=== PATIENT | female | born 1995 | race Caucasian/White ===

== ENCOUNTER 2021-02-01 01:15 | Emergency (ER) | payer OTHER ==
[~2021-02-01] VITALS: Ht 165.1 cm; Wt 70.0 kg
[2021-02-01 01:27] LABS: BASO % 1 % (0-3); EOS # 0.2 x10^3/uL (0.0-0.7); EOS % 3 % (0-3); HEMOGLOBIN 11.6 g/dL (12.0-15.5); LYMPH # 2.8 x10^3/uL (1.0-4.8); LYMPH % 42 % (24-48); MEAN CORPUSCULAR HEMOGLOBIN 26 pg (25-35); MEAN CORPUSCULAR HGB CONC 32 g/dL (31-37); MEAN CORPUSCULAR VOLUME 79 fL (79-100); MONO # 0.7 x10^3/uL (0.0-1.1); MONO % 10 % (0-9); NEUT % 45 % (31-73); PLATELET COUNT 364 x10^3/uL (140-400); RED BLOOD COUNT 4.54 x10^6/uL (3.50-5.40); RED CELL DISTRIBUTION WIDTH 18.6 % (11.5-14.5); WHITE BLOOD COUNT 6.7 x10^3/uL (4.0-11.0)
[2021-02-01 01:40] LABS: CALCIUM 8.3 mg/dL (8.5-10.1); CREATININE 0.9 mg/dL (0.6-1.0); GFR 75.7; POTASSIUM 3.4 mmol/L (3.5-5.1)
[2021-02-01 01:46] LABS: ALBUMIN 3.4 g/dL (3.4-5.0); MAGNESIUM 1.8 mg/dL (1.8-2.4); PHOSPHORUS 3.6 mg/dL (2.6-4.7); TOTAL BILIRUBIN 0.3 mg/dL (0.2-1.0); TOTAL PROTEIN 6.9 g/dL (6.4-8.2)
--- NOTE | 2021-02-01 01:53 | ED.ADGEN ---
General Adult EDM: Chief Complaint: RAPID HEART RATE HPI: HPI: Patient is a 25 year old female coming in via EMS from home for palpitations. Patient states she felt her heart was beating fast and does not feel right. Lit tle over an hour prior to arrival patient had taken an "edible" she thinks may have been homemade. Patient states she just does not feel right. Had called EMS prior but refused transport, called back again because she was concerned she was having a stroke. When asked about what stroke symptoms patient was having said "my head does not feel right". Denies any other drug or alcohol use. Review of Systems: Review of Systems: All other systems within normal limits except for as noted in the HPI Current Medications: Current Medications Medications (Trade) Dose Ordered Sig/Waqar Start Time Stop Time Status Last Admin Dose Admin Lorazepam (Ativan Inj) 1 mg 1X ONCE 02/01/21 02:30 02/01/21 02:31 DC 02/01/21 02:04 1 MG Sodium Chloride 1,000 ml @ 1,000 mls/hr 1X ONCE 02/01/21 02:30 02/01/21 03:29 DC 02/01/21 02:04 1,000 MLS/HR Allergies: Allergies: Allergies Coded Allergies Type Severity Reaction Last Updated Verified No Known Drug Allergies 02/01/21 No Physical Exam: PE: Constitutional: Well developed, well nourished, no acute distress, non-toxic appearance. Tremors [] HENT: Normocephalic, atraumatic, bilateral external ears normal, nose normal. [] Eyes: PERRLA, conjunctiva normal, no discharge. [] Neck: No rigidity, supple, no stridor. [] Cardiovascular: Tachycardic, regular, brisk cap refill [] Lungs & Thorax: Non labored symmetric respirations, mild tachypnea Abdomen: Soft, nondistended. Skin: Warm, dry, no erythema, no rash. [] Back: Unremarkable Extremities: No deformities, range of motion grossly intact, no lower extremity edema [] Neurologic: Alert and oriented X 3, no focal deficits noted. [] Psychologic: Affect normal, judgement normal, mood normal. [] Current Patient Data: Labs: Laboratory Tests Test 02/01/21 01:20 02/01/21 01:35 02/01/21 01:48 White Blood Count 6.7 x10^3/uL (4.0-11.0) Red Blood Count 4.54 x10^6/uL (3.50-5.40) Hemoglobin 11.6 g/dL (12.0-15.5) L Hematocrit 36.0 % (36.0-47.0) Mean Corpuscular Volume 79 fL (79-100) Mean Corpuscular Hemoglobin 26 pg (25-35) Mean Corpuscular Hemoglobin Concent 32 g/dL (31-37) Red Cell Distribution Width 18.6 % (11.5-14.5) H Platelet Count 364 x10^3/uL (140-400) Neutrophils (%) (Auto) 45 % (31-73) Lymphocytes (%) (Auto) 42 % (24-48) Monocytes (%) (Auto) 10 % (0-9) H Eosinophils (%) (Auto) 3 % (0-3) Basophils (%) (Auto) 1 % (0-3) Neutrophils # (Auto) 3.0 x10^3/uL (1.8-7.7) Lymphocytes # (Auto) 2.8 x10^3/uL (1.0-4.8) Monocytes # (Auto) 0.7 x10^3/uL (0.0-1.1) Eosinophils # (Auto) 0.2 x10^3/uL (0.0-0.7) Basophils # (Auto) 0.0 x10^3/uL (0.0-0.2) Sodium Level 140 mmol/L (136-145) Potassium Level 3.4 mmol/L (3.5-5.1) L Chloride Level 104 mmol/L (98-107) Carbon Dioxide Level 24 mmol/L (21-32) Anion Gap 12 (6-14) Blood Urea Nitrogen 11 mg/dL (7-20) Creatinine 0.9 mg/dL (0.6-1.0) Estimated GFR (Cockcroft-Gault) 75.7 BUN/Creatinine Ratio 12 (6-20) Glucose Level 117 mg/dL (70-99) H Calcium Level 8.3 mg/dL (8.5-10.1) L Phosphorus Level 3.6 mg/dL (2.6-4.7) Magnesium Level 1.8 mg/dL (1.8-2.4) Total Bilirubin 0.3 mg/dL (0.2-1.0) Aspartate Amino Transferase (AST) 16 U/L (15-37) Alanine Aminotransferase (ALT) 16 U/L (14-59) Alkaline Phosphatase 71 U/L (46-116) Troponin I High Sensitivity < 4 ng/L (4-50) L Total Protein 6.9 g/dL (6.4-8.2) Albumin 3.4 g/dL (3.4-5.0) Albumin/Globulin Ratio 1.0 (1.0-1.7) Ethyl Alcohol Level < 10 mg/dL (0-10) Urine Collection Type Unknown Urine Color Yellow Urine Clarity Clear Urine pH 5.5 (<5.0-8.0) Urine Specific [place] 1.015 (1.000-1.030) Urine Protein Negative mg/dL (NEG-TRACE) Urine Glucose (UA) Negative mg/dL (NEG) Urine Ketones (Stick) Negative mg/dL (NEG) Urine Blood Negative (NEG) Urine Nitrite Negative (NEG) Urine Bilirubin Negative (NEG) Urine Urobilinogen Dipstick 0.2 mg/dL (0.2 mg/dL) Urine Leukocyte Esterase Negative (NEG) Urine RBC 0 /HPF (0-2) Urine WBC 0 /HPF (0-4) Urine Squamous Epithelial Cells Occ /LPF Urine Bacteria 0 /HPF (0-FEW) Urine Mucus Slight /LPF Urine Opiates Screen Neg (NEG) Urine Methadone Screen Neg (NEG) Urine Barbiturates Neg (NEG) Urine Phencyclidine Screen Neg (NEG) Urine Amphetamine/Methamphetamine Neg (NEG) Urine Benzodiazepines Screen Neg (NEG) Urine Cocaine Screen Neg (NEG) Urine Cannabinoids Screen Pos (NEG) Urine Ethyl Alcohol Neg (NEG) POC Urine HCG, Qualitative Hcg negative (Negative) Laboratory Tests 02/01/21 01:20 Laboratory Tests 02/01/21 01:20 Vital Signs: Vital Signs Date Time Temp Pulse Resp B/P (MAP) Pulse Ox O2 Delivery O2 Flow Rate FiO2 02/01/21 01:15 98.1 144 22 133/82 (99) 99 Room Air 98.1 EKG: EKG: Sinus tachycardia, heart rate 150 bpm, no ST ovation depression, borderline QT [] Heart Score: C/O Chest Pain: No HEART Score for Chest Pain: HEART Score for Chest Pain Response (Comments) Value History Slighlty/Non-Suspicious 0 ECG Normal 0 Age < 45 0 Risk Factors No Risk Factors 0 Troponin < Normal Limit 0 Total 0 Risk Factors: Risk Factors: DM, Current or recent (<one month) smoker, HTN, HLP, family history of CAD, obesity. Risk Scores: Score 0 - 3: 2.5% MACE over next 6 weeks - Discharge Home Score 4 - 6: 20.3% MACE over next 6 weeks - Admit for Clinical Observation Score 7 - 10: 72.7% MACE over next 6 weeks - Early Invasive Strategies Radiology/Procedures: Radiology/Procedures: [] Course & Med Decision Making: Course & Med Decision Making Pertinent Labs and Imaging studies reviewed. (See chart for details) Patient feeling better and improved with fluids and lorazepam. Patient and sinus tachycardia armoire initially but is now in normal sinus rhythm [] Dragon Disclaimer: Dragon Disclaimer: This electronic medical record was generated, in whole or in part, using a voice recognition dictation system. Departure Departure Impression: Primary Impression: Anxiety Additional Impression: Tachycardia Disposition: 01 HOME / SELF CARE / HOMELESS Condition: IMPROVED Patient Instructions: Anxiety and Panic Attacks Scripts Hydroxyzine Hcl (HYDROXYZINE HCL) 25 Mg Tablet 1 TAB PO TID PRN for ANXIETY, #30 TAB Prov: SWETHA ROSE MD 02/01/21 Problem Qualifiers SWETHA ROSE MD Feb 01, 2021 01:53
[2021-02-01 01:57] LABS: BILIRUBIN,URINE NEGATIVE (NEG); CLARITY,URINE CLEAR; COLOR,URINE YELLOW; NITRITE,URINE NEGATIVE (NEG); PH,URINE 5.5 (<5.0-8.0); PROTEIN,URINE NEGATIVE (NEG-TRACE); UROBILINOGEN,URINE 0.2 mg/dL (0.2 mg/dL)
[2021-02-01 02:03] LABS: AMPHETAMINE/METHAMPHETAMINE NEG (NEG); BARBITURATES NEG (NEG); BENZODIAZEPINES NEG (NEG); CANNABINOIDS POS (NEG); COCAINE NEG (NEG); METHADONE NEG (NEG); OPIATES NEG (NEG); PHENCYCLIDINE NEG (NEG)
[2021-02-01 02:05] LABS: BACTERIA,URINE 0 /HPF (0-FEW); RBC,URINE 0 /HPF (0-2); WBC,URINE 0 /HPF (0-4)
[2021-02-01] MEDS ORDERED: IV NORMAL SALINE 1000ML BAG 1,000 ML IV ONE (02:30)
--- NOTE | 2021-02-01 03:20 | EKG ---
[facility] [address] [place] [address] Test Date: 2021-02-01 Test Time: 01:22:28 Pat Name: JESSIKA GALICIA Department: Room: Gender: F Video Coordinator: : 1995 Requested By: SWETHA ROSE Order Number: [id number] Reading MD: Albaro Green MD Measurements Intervals [place] Rate: 152 P: -90 [place]: 70 QRS: 104 QRSD: 80 T: 44 QT: 310 QTc: 500 Interpretive Statements SINUST TACHYCARDIA Electronically Signed On 02-03-2021 20:54:26 PIGEON FANCIER by Albaro Green MD
[2021-02-01] MEDS ORDERED: HYDR25TA PO (03:50)
[2021-02-01 04:00] VITALS: BP 147/81
== END 2021-02-01 04:14 | disposition home or self-care (01) ==
LOC: ER 01:15
DX: F41.9 Anxiety disorder, unspecified (principal); R00.0 Tachycardia, unspecified
CPT/HCPCS: 36415; 80053; 80307; 81001; 81025; 83735; 84100; 84484; 85025; 93005; 96361; 96374; 99285; G0480; J2060; J7030